=== PATIENT | male | born 1935 | race Caucasian/White ===

== ENCOUNTER 2022-07-31 03:37 | Observation (INO) | payer MEDICARE, BC ==
[2022-07-31 05:44] VITALS: BMI 25.6
[2022-07-31] MEDS: Escitalopram Oxalate 20 mg Tablet PO SCH (10:01)
[2022-07-31] MEDS: Atorvastatin Calcium 40 MG TAB PO SCH (10:01)
[2022-07-31] MEDS: levETIRAcetam 500 MG TAB PO SCH ×2 (10:01→22:16)
[2022-07-31] MEDS ORDERED: Ondansetron ODT 4 MG TAB PO PRN (10:16)
[2022-07-31] MEDS ORDERED: Ondansetron PF 4 MG/2 ML Vial IVP PRN (10:16)
[2022-07-31 11:10] LABS: #Eosinphils 0.2 thou/uL (0.0-0.7); #Lymphocytes 1.6 thou/uL (1.20-3.40); #Monocytes 0.7 thou/uL (0.11-0.59); #Neutrophils 5.4 thou/uL (1.40-6.50); %Eosinophils 2.8 % (0.0-10.0); %Lymphocytes 20.4 % (21.0-51.0); %Monocytes 8.5 % (0.0-10.0); %Neutrophils 68.3 % (42.0-75.0); Hemoglobin 13.9 g/dL (14.0-18.0); Mean Corpuscular HGB CONC 32.4 g/dL (32.0-36.0); Mean Corpuscular Hemoglobin 30.3 pg (27.0-31.0); Mean Corpuscular Volume 93.5 fL (78.0-98.0); Mean Platelet Volume 8.4 fL (7.4-10.4); Platelet Count 129 thou/uL (130-400); RBC Distribution Width 11.5 % (11.5-14.5); Red Blood Cell (RBC) Count 4.57 mill/uL (4.70-6.10)
[2022-07-31 11:31] LABS: Anion Gap 11 mmol/L (10-20); BUN (Urea Nitrogen) 19 mg/dL (8.4-25.7); Calc. Creatinine Clearance 50 mL/min (70-130); Calcium 8.8 mg/dL (7.8-10.44); Carbon Dioxide 27 mmol/L (23-31); Chloride 107 mmol/L (98-107); Estimated GFR 61; Glucose 111 mg/dL (83-110); Potassium 4.5 mmol/L (3.5-5.1); Sodium 140 mmol/L (136-145)
[2022-07-31] MEDS ORDERED: OLANZapine 10 MG VIAL IM SCH (12:45)
[2022-07-31] MEDS ORDERED: Lorazepam 0.5 MG TAB PO SCH (13:15)
[2022-07-31] MEDS ORDERED: Midazolam HCl 2 mg/2 ml Vial IVP SCH (13:45)
[2022-07-31] MEDS ORDERED: RIVASTIGMINE TARTRATE 4.5 MG PO SCH (17:00)
[2022-07-31] MEDS ORDERED: Haloperidol Lactate 5 MG/ML VIAL IM SCH (17:15)
[2022-07-31] MEDS: Rivastigmine 1.5 MG CAP PO SCH (17:19)
[2022-07-31] MEDS ORDERED: levETIRAcetam 500 MG/5 ML VIAL SLOW IVP SCH (20:45)
[2022-08-01 05:22] LABS: Anion Gap 9 mmol/L (10-20); BUN (Urea Nitrogen) 18 mg/dL (8.4-25.7); Calc. Creatinine Clearance 52 mL/min (70-130); Calcium 8.7 mg/dL (7.8-10.44); Carbon Dioxide 28 mmol/L (23-31); Chloride 110 mmol/L (98-107); Estimated GFR 63; Glucose 86 mg/dL (83-110); Potassium 4.2 mmol/L (3.5-5.1); Sodium 143 mmol/L (136-145)
[2022-08-01 06:56] LABS: #Eosinphils 0.4 thou/uL (0.0-0.7); #Lymphocytes 1.6 thou/uL (1.20-3.40); #Monocytes 0.7 thou/uL (0.11-0.59); #Neutrophils 5.4 thou/uL (1.40-6.50); %Basophils 0.2 % (0.0-1.0); %Eosinophils 4.7 % (0.0-10.0); %Monocytes 8.7 % (0.0-10.0); %Neutrophils 66.3 % (42.0-75.0); Hemoglobin 13.1 g/dL (14.0-18.0); Mean Corpuscular HGB CONC 31.8 g/dL (32.0-36.0); Mean Corpuscular Hemoglobin 30.1 pg (27.0-31.0); Mean Corpuscular Volume 94.5 fL (78.0-98.0); Mean Platelet Volume 8.8 fL (7.4-10.4); Platelet Count 118 thou/uL (130-400); Platelet Morphology Comment Appears Decreased; RBC Distribution Width 11.7 % (11.5-14.5); Red Blood Cell (RBC) Count 4.36 mill/uL (4.70-6.10); White Blood Cell (WBC) Count 8.1 thou/uL (4.8-10.8)
[2022-08-01] MEDS: Rivastigmine 1.5 MG CAP PO SCH (08:22)
[2022-08-01] MEDS: Atorvastatin Calcium 40 MG TAB PO SCH (08:23)
[2022-08-01] MEDS: Escitalopram Oxalate 20 mg Tablet PO SCH (08:23)
[2022-08-01] MEDS: levETIRAcetam 500 MG TAB PO SCH (08:23)
[2022-08-01 11:38] VITALS: TEMP 96.8
[2022-08-01 16:25] VITALS: BP 118/67
[2022-08-01] MEDS ORDERED: Haloperidol 1 MG TAB PO SCH (21:00)
== END 2022-08-01 16:20 | disposition home or self-care (01) ==
LOC: NEURO 04:49
PROVIDERS: ADMIT Internal Medicine; ATTEND Internal Medicine
DX: G93.40 Encephalopathy, unspecified (principal); F03.91 Unspecified dementia, unspecified severity, with behavioral disturbance; F05 Delirium due to known physiological condition; G40.909 Epilepsy, unspecified, not intractable, without status epilepticus; E78.5 Hyperlipidemia, unspecified; M47.816 Spondylosis without myelopathy or radiculopathy, lumbar region; R11.2 Nausea with vomiting, unspecified; Z66 Do not resuscitate; Z85.118 Personal history of other malignant neoplasm of bronchus and lung; Z86.61 Personal history of infections of the central nervous system; Z87.891 Personal history of nicotine dependence; Z79.82 Long term (current) use of aspirin; Z79.899 Other long term (current) drug therapy; Z88.1 Allergy status to other antibiotic agents; Z90.2 Acquired absence of lung [part of]; Z20.822 Contact with and (suspected) exposure to COVID-19
CPT/HCPCS: 74018; 80048 ×2; 85025 ×2; 95712; 95819; 95957; 96372; 96374; 97535; G0378 ×2; J1953; J2358; 36415; J1630